=== PATIENT | male | born 1975 | race Caucasian/White ===

== ENCOUNTER 2018-09-10 13:00 | Inpatient (IN) | payer OTHER ==
[~2018-09-10] VITALS: Ht 177.8 cm; Wt 79.4 kg
[2018-09-10] MEDS ORDERED: IBRANCE125 MG PO (16:47)
[2018-09-10] MEDS ORDERED: ROSUVASTATIN CA10 MG PO (16:47)
[2018-09-10] MEDS ORDERED: [UNRECOGNIZED DRUG - OTHER] PO (16:49)
[2018-09-18] MEDS ORDERED: OXYC1TAB9 PO (13:49)
[2018-09-18] MEDS ORDERED: Intestinex CAP PO (13:50)
[2018-09-18] MEDS ORDERED: PANTOPRAZOLE SO40 MG PO (13:50)
== END 2018-09-18 15:05 | disposition home or self-care (01) | DRG 331 ==
LOC: SURH 09-15 08:21 → O/R 09-15 08:21 → SURH 09-15 09:30
PROVIDERS: Surgery
PROC: 0DTN4ZZ Resection of Sigmoid Colon, Percutaneous Endoscopic Approach (ICD-10-PCS; 2018-09-15)
PROC: 0DBN4ZZ Excision of Sigmoid Colon, Percutaneous Endoscopic Approach (ICD-10-PCS; principal; 2018-09-15 09:30)
DX: K57.20 Diverticulitis of large intestine with perforation and abscess without bleeding (principal); G47.33 Obstructive sleep apnea (adult) (pediatric); R73.01 Impaired fasting glucose; F41.8 Other specified anxiety disorders; Z93.3 Colostomy status

== ENCOUNTER 2023-02-25 05:48 | Day surgery (SDC) | payer OTHER ==
[~2023-02-25 05:48] MED LIST: IBRANCE125 MG PO; Intestinex CAP PO; MICARDIS20 MG PO; OXYC1TAB9 PO; PANTOPRAZOLE SO40 MG PO; ROSUVASTATIN CA10 MG PO; [UNRECOGNIZED DRUG - OTHER] PO
[2023-02-25] MEDS ORDERED: DICY20TA PO ×2 (09:35)
[2023-02-25] MEDS ORDERED: PEPCID AC20 MG PO ×2 (09:35)
[2023-02-25] MEDS ORDERED: PERCOCET 5-3251 EACH PO ×2 (09:35)
[2023-02-25] MEDS ORDERED: ZOFRAN8 MG PO ×2 (09:36)
[2023-02-26] MEDS ORDERED: ONDANSETRON ODT8 MG (08:21)
[2023-02-26] MEDS ORDERED: ABATINEX680 MG (08:21)
[2023-02-26] MEDS ORDERED: HYOSCYAMINE0.125 M1 (08:21)
[2023-02-26] MEDS ORDERED: DEXLANSOPRAZOLE60 MG (08:21)
[2023-02-26] MEDS ORDERED: GLYCOPYRROLATE2 MG (08:21)
[2023-02-26] MEDS ORDERED: RABEPRAZOLE SOD20 MG (08:21)
[2023-02-26] MEDS ORDERED: MAXIMUM D3325 MCG (08:22)
== END 2023-02-25 12:25 | disposition home or self-care (01) ==
LOC: CIR.AMB 05:48
PROVIDERS: ATTEND Surgery
DX: K81.1 Chronic cholecystitis (principal); Z20.822 Contact with and (suspected) exposure to COVID-19; I10 Essential (primary) hypertension; F17.210 Nicotine dependence, cigarettes, uncomplicated

== ENCOUNTER 2023-02-25 20:11 | Inpatient (IN) | payer OTHER ==
[~2023-02-25] VITALS: Ht 162.6 cm; Wt 81.6 kg
[~2023-02-25 20:11] MED LIST changes: +DICY20TA PO; +PEPCID AC20 MG PO; +PERCOCET 5-3251 EACH PO; +ZOFRAN8 MG PO
[2023-02-26] MEDS ORDERED: RABEPRAZOLE SOD20 MG (08:21)
[2023-02-26] MEDS ORDERED: DEXLANSOPRAZOLE60 MG (08:21)
[2023-02-26] MEDS ORDERED: GLYCOPYRROLATE2 MG (08:21)
[2023-02-26] MEDS ORDERED: ABATINEX680 MG (08:21)
[2023-02-26] MEDS ORDERED: HYOSCYAMINE0.125 M1 (08:21)
[2023-02-26] MEDS ORDERED: ONDANSETRON ODT8 MG (08:21)
[2023-02-26] MEDS ORDERED: MAXIMUM D3325 MCG (08:22)
[2023-02-27] MEDS ORDERED: DICLOFENAC SODI75 MG PO ×2 (09:18)
== END 2023-02-27 10:09 | disposition home or self-care (01) | DRG 392 ==
LOC: ER 20:11 → SURH 23:51
PROVIDERS: ADMIT Surgery; ATTEND Surgery
DX: K91.0 Vomiting following gastrointestinal surgery (principal); E16.2 Hypoglycemia, unspecified; I10 Essential (primary) hypertension; G47.33 Obstructive sleep apnea (adult) (pediatric)